=== PATIENT | female | born 1975 | race Caucasian/White ===

== ENCOUNTER → 2018-03-04 | Outpatient (CLI) | payer OTHER ==
[~2018-03-04] MED LIST: SYNTHROID
--- NOTE | 2018-03-08 04:27 | SLE ---
[facility] [place] [address] POLYSOMNOGRAPHY STUDY Name: LANDENKATE Lo Room #: [facility]#: [id number] Admission: 03/04/18 Attend Phys: Shaquille Sol MD Discharge: Date of : 79 Report #: [id number] THIS REPORT FOR: //name// CC: Shaquille Perez [facility]- DATE OF SERVICE: 03/05/2018 ATTENDING PHYSICIAN: DESIRAE Brown The patient is 42 years old, who weighs 285 pounds and is 66 inches tall with a BMI of 46. The patient has a previous history of sleep apnea and due to intolerance to CPAP has been on BiPAP. Another BiPAP titration study was requested by primary physician. During the night of study, the patient spent 395 minutes in bed and slept for 339 minutes with a sleep efficiency of 86%. Sleep latency was short at Zero minutes and REM latency was also short at 67 minutes. Overall, sleep architecture showed increased stage 1 and stage 2 sleep, normal N3 sleep and reduced REM sleep, which was 9.4% of the total sleep time. EKG monitoring revealed an average heart rate of 70 beats per minute with a maximum of 102 beats per minute. Occasional PVCs seen. No sustained arrhythmias observed. PLMS were seen at an index of 14 per hour and 1 per hour caused EEG arousals. The patient was started on BiPAP at a pressure of 10/6 and titrated up to 18/9. At the final pressure, the patient slept for 53 minutes. The patient in supine as well as REM sleep. The patient's AHI was reduced to 0 per hour and oxygen saturation remained above 90%. IMPRESSION: 1. Sleep apnea diagnosed by previous sleep study. 2. Mild periodic limb movements, which does not need to be treated. RECOMMENDATIONS: 1. BiPAP at 18/9, completely eliminated the patient's sleep apnea and should be used on a nightly basis. 2. Follow up in 4-6 weeks to assess compliance with BiPAP and to document clinical improvement. 3. Weight loss is strongly advised. 4. Avoid PRESS T[employer]ER [employer] depressants. [facility] [address] [place] [address] POLYSOMNOGRAPHY STUDY Name: SCHUSTERKATE Room #: [facility]#: [id number] Admission: 03/04/18 Attend Phys: Shaquille Sol MD Discharge: Date of : 79 Report #: [id number] 5. Cautioned regarding driving until symptoms of sleep apnea resolved with the use of BiPAP. <ELECTRONICALLY SIGNED> By: Shaquille Sol MD 03/08/18 0427 023 031 Shaquille Sol MD /nt
== END ==
LOC: SLEEPLAB
DX: G47.30 Sleep apnea, unspecified (principal); G47.61 Periodic limb movement disorder

== ENCOUNTER → 2018-03-28 | Outpatient (CLI) | payer OTHER ==
--- NOTE | 2018-03-28 16:00 | EXE ---
Formerly [facility] [employer] [place] [address] STRESS ECHOCARDIOGRAM Name: KATE SCHUSTER Room #: REG [facility]#: [id number] Admission: 03/28/18 Attend Phys: Deedee Perez Discharge: Date of : 79 Date of Service: 03/28/18 1600 Report #: [id number] THIS REPORT FOR: //name// APPROVED REPORT Study performed: 03/28/2018 10:31:32 Exam: Dobutamine Stress Echo Indication: Edema, WHITLEY, Chest pain Patient Location: Out-Patient Stress Nurse: Coco Campbell, RN, Lolly Lyles RN Status: routine Ht: 5 ft 5 in HR: 72 bpm BP: 108/78 mmHg Rhythm: NSR Medical History Medications: No cardiac meds. Allergies: Listed on worksheet Cardiac Risk Factors: FHX of CAD, Smoking, Hyperlipidemia, obesity Procedure The patient underwent a Pharmacological Stress Test using Dobutamine. Blood pressure, heart rate, and EKG were monitored. An Echocardiogram was performed by bicycle service technician in four stages in quad fashion. At peak stress, four selected images were obtained and placed side by side with resting images for comparison. Stress Test Details Stress Test: Pharmacological stress testing performed using Dobutamine. HR Resting HR: 72 bpm Max Heart Rate (APMHR): 180 bpm Max HR Achieved: 157 bpm Target HR (85% APMHR): 153 bpm % of APMHR: 87 Recovery HR: 83 bpm HR response to stress: Normal HR response to stress BP Resting BP: 108/78 mmHg Max BP: 142/83 mmHg Recovery BP: 113/78 mmHg [facility] [address] [place] [address] STRESS ECHOCARDIOGRAM Name: SCHUSTERKATE Room #: REG [facility]#: [id number] Admission: 03/28/18 Attend Phys: Deedee Perez Discharge: Date of : 79 Date of Service: 03/28/18 1600 Report #: [id number] BP response to stress: Normal blood pressure response to stress. ECG Clinical Reason for Termination: Completed protocol at 87% Stress Symptoms: Right side chest pain, headache Stress ECG Conclusion 1. Objectively abnormal his chest discomfort occurring during injection 2. Electrocardiographically negative for ischemia Pre-Stress Echo The resting Echocardiogram showed normal left ventricular contractility with an estimated Ejection Fraction of about 60-65%. Trivial aortic, mitral and tricuspid regurgitation. Post-Stress Echo The stress Echocardiogram showed normal left ventricular contractility with an estimated Ejection Fraction of about >70%. Conclusion Clinical Response: Ischemic Stress ECG Response: Non-ischemic Stress Echo Images: Non-ischemic 1.Low Risk study Other Information Study Quality: Adequate <Conclusion> 1.Low Risk study <ELECTRONICALLY SIGNED> By: Devon Méndez MD 01/1599 99 99 Devon Méndez MD /INF
== END ==
LOC: CV 03-16 07:43
DX: R06.09 Other forms of dyspnea (principal); R07.9 Chest pain, unspecified; R60.0 Localized edema